=== PATIENT | female | born 1980 | race Caucasian/White ===

== ENCOUNTER 2016-10-27 06:58 | Day surgery (SDC) | payer OTHER ==
[~2016-10-27 06:58] MED LIST: Dexamethasone 4 MG/ML SDV ONE; Lactated Ringers 1,000 ML ONE; Lidocaine 1%/Sod Bicarbonate in NS 8.4% 1 ML Syringe PRN; Midazolam 1 MG/ML 2 ML SDV ONE; Ondansetron 4 MG/2 ML SDV ONE; Propofol 200 MG/20 ML SDV ONE; Rocuronium 50 MG/5 ML Vial ONE; Sodium Chloride 0.9% 10 ML Syringe FLUSH PRN; ceFAZolin 1 GM Vial ONE; fentaNYL 250 MCG/5 ML SDV ONE
[2016-10-27] MEDS ORDERED: Succinylcholine 200 MG/10 ML MDV ONE (07:00)
[2016-10-27] MEDS ORDERED: Ketorolac 30 MG/ML SDV ONE (07:04)
[2016-10-27] MEDS ORDERED: Lidocaine 1% 30 ML SDV ONE (07:11)
[2016-10-27] MEDS ORDERED: Sodium Chloride 0.9% 50 ML SDV ONE (07:11)
[2016-10-27] MEDS: Lactated Ringers 1,000 ML IV SCH ×2 (07:45→10:19)
[2016-10-27] MEDS ORDERED: Scopolamine 1.5 MG Transdermal Patch TRDERM ONE (08:03)
--- NOTE | 2016-10-27 08:06 | PCM.PREANE ---
Preanesthetic Assessment - Anesthesia/Transfusion/Family Hx Anesthesia History: Prior Anesthesia Reaction (PONV) Family History of Anesthesia Reaction: No Transfusion History: No Prior Transfusion(s) - Review of Systems General: No Symptoms Pulmonary: No Symptoms Cardiovascular: No Symptoms Gastrointestinal: No Symptoms Neurological: No Symptoms (Herniated disk in lower back, causes left sided hip pain. Understands she will be in lithotomy position. ) Other: Reports: None - Physical Assessment NPO Status Date: 10/26/16 NPO Status Time: 22:30 O2 Sat by Pulse Oximetry: 96 Respiratory Rate: 16 Vital Signs: Last Vital Signs Temp 36.8 C 10/27/16 07:40 Pulse 73 10/27/16 07:40 Resp 16 10/27/16 07:40 BP 122/81 10/27/16 07:40 Pulse Ox 96 10/27/16 07:40 Height: 1.83 m Weight: 91.626 kg ASA Class: 2 Mental Status: Alert & Oriented x3 Airway Class: Mallampati = 1 Dentition: Reports: Normal Dentition Thyro-Mental Finger Breadths: 3 Mouth Opening Finger Breadths: 3 ROM/Head Extension: Full Lungs: Clear to Auscultation, Normal Respiratory Effort Cardiovascular: Regular Rate, Regular Rhythm - Lab Values: Laboratory Last Values WBC 7.98 K/mm3 (3.98-10.04) 10/25/16 11:42 RBC 4.68 M/mm3 (3.98-5.22) 10/25/16 11:42 Hgb 13.9 gm/L (11.2-15.7) 10/25/16 11:42 Hct 42.1 % (34.1-44.9) 10/25/16 11:42 MCV 90.0 fl (79.4-94.8) 10/25/16 11:42 MCH 29.7 pg (25.6-32.2) 10/25/16 11:42 MCHC 33.0 g/dl (32.2-35.5) 10/25/16 11:42 RDW Std Deviation 39.5 fL (36.4-46.3) 10/25/16 11:42 Plt Count 247 K/mm3 (182-369) 10/25/16 11:42 MPV 10.7 fl (9.4-12.3) 10/25/16 11:42 Neut % (Auto) 61.0 % (34.0-71.1) 10/25/16 11:42 Lymph % (Auto) 30.7 % (19.3-51.7) 10/25/16 11:42 [place] % (Auto) 6.0 % (4.7-12.5) 10/25/16 11:42 Eos % (Auto) 1.5 (0.7-5.8) 10/25/16 11:42 Baso % (Auto) 0.5 % (0.1-1.2) 10/25/16 11:42 Neut # (Auto) 4.87 K/mm3 (1.56-6.13) 10/25/16 11:42 Lymph # (Auto) 2.45 K/mm3 (1.18-3.74) 10/25/16 11:42 [place] # (Auto) 0.48 K/mm3 (0.24-0.36) H 10/25/16 11:42 Eos # (Auto) 0.12 K/mm3 (0.04-0.36) 10/25/16 11:42 Baso # (Auto) 0.04 K/mm3 (0.01-0.08) 10/25/16 11:42 Creatinine 1.0 mg/dL (0.55-1.02) 10/25/16 11:42 Est Cr Clr Drug Dosing 88.02 mL/min 10/25/16 11:42 Estimated GFR (MDRD) > 60 mL/min (>60) 10/25/16 11:42 Urine Color Yellow (Yellow) 10/25/16 11:42 Urine Appearance Clear (Clear) 10/25/16 11:42 Urine pH 6.0 (5.0-8.0) 10/25/16 11:42 Ur Specific [place] 1.015 (1.005-1.030) 10/25/16 11:42 Urine Protein Negative (Negative) 10/25/16 11:42 Urine Glucose (UA) Negative (Negative) 10/25/16 11:42 Urine Ketones Negative (Negative) 10/25/16 11:42 Urine Occult Blood Negative (Negative) 10/25/16 11:42 Urine Nitrite Negative (Negative) 10/25/16 11:42 Urine Bilirubin Negative (Negative) 10/25/16 11:42 Urine Urobilinogen 0.2 (0.2-1.0) 10/25/16 11:42 Ur Leukocyte Esterase Negative (Negative) 10/25/16 11:42 Urine HCG, Qual Negative (NEGATIVE) 10/25/16 11:42 Blood Type A POSITIVE 10/25/16 11:42 Gel Antibody Screen Negative 10/25/16 11:42 - Allergies Allergies/Adverse Reactions: Allergies Allergy/AdvReac Type Severity Reaction Status Date / Time No Known Allergies Allergy Verified 10/26/16 15:58 - Acknowledgements Anesthesia Type Planned: General Anesthesia Pt an Appropriate Candidate for the Planned Anesthesia: Yes Alternatives and Risks of Anesthesia Discussed w Pt/Guardian: Yes Pt/Guardian Understands and Agrees with Anesthesia Plan: Yes PreAnesthesia Questionnaire HEENT History: Reports: Allergic Rhinitis Cardiovascular History: Reports: Other (See Below) Other Cardiovascular History: heart palpitations, post orhtostatic tachycardia syndrome Respiratory History: Reports: None Gastrointestinal History: Reports: Hemorrhoids Genitourinary History: Reports: STD 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: , Other (See Below) Other OB/BYN History: menorrhagia, genital warts Musculoskeletal History: Reports: Other (See Below) Other Musculoskeletal History: heriated disc, L hip pain Neurological History: Reports: Other (See Below) Other Neuro History: lightheadedness Psychiatric History: Reports: None Endocrine/Metabolic History: Reports: None Hematologic History: Reports: None, Other (See Below) Other Hematologic History: leukocytosis Immunologic History: Reports: None Oncologic (Cancer) History: Reports: None Dermatologic History: Reports: None - Past Surgical History Head Surgeries/Procedures: Reports: None HEENT Surgical History: Reports: Myringotomy w Tube(s), Oral Surgery, Other ( See Below) Other HEENT Surgeries/Procedures: PRK surgery Respiratory Surgical History: Reports: None GI Surgical History: Reports: None Female Surgical History: Reports: Tubal Ligation Endocrine Surgical History: Reports: None Dermatological Surgical History: Reports: None - SUBSTANCE USE Smoking Status *Q: Former Smoker Tobacco Use Within Last Twelve Months: Cigarettes Second Hand Smoke Exposure: No Recreational Drug Use History: No - HOME MEDS Home Medications: Home Meds Cetirizine [ZyrTEC] 10 mg PO DAILY 10/26/16 [History] Fluticasone Propionate [Flonase] 1 spray NASBOTH DAILY 10/26/16 [History] Hydrocortisone [Preparation H] 1 applic RECTAL ASDIRECTED PRN 10/26/16 [History] Ketotifen Fumarate [Alaway] 1 drop EYEBOTH BID 10/26/16 [History] Krill Oil 500 mg PO DAILY 10/26/16 [History] Multivitamin with Minerals [Multiple Vitamin] 1 tab PO DAILY 10/26/16 [History] - CURRENT (IN HOUSE) MEDS Current Meds: Current Medications Lactated Ringer's (Ringers, Lactated) 1,000 mls @ 125 mls/hr IV ASDIRECTED TOÑA Stop: 10/27/16 23:00 Last Admin: 10/27/16 07:45 Dose: 125 mls/hr Lidocaine/Sodium Bicarbonate (Buffered Lidocaine 1% In Ns 8.4%) 0.25 ml .XX ONETIME PRN PRN Reason: Prior to IV Start Stop: 10/27/16 18:00 Last Admin: 10/27/16 07:45 Dose: 0.25 ml Sodium Chloride (Saline Flush) 10 ml FLUSH ASDIRECTED PRN PRN Reason: Keep Vein Open Stop: 10/27/16 18:00 Discontinued Medications Cefazolin Sodium (Ancef) Confirm Administered Dose 2 gm .ROUTE .STK-MED ONE Stop: 10/27/16 06:56 Dexamethasone (Dexamethasone) Confirm Administered Dose 4 mg .ROUTE .STK-MED ONE Stop: 10/27/16 06:56 Fentanyl (Sublimaze) Confirm Administered Dose 250 mcg .ROUTE .STK-MED ONE Stop: 10/27/16 06:56 Lactated Ringer's (Ringers, Lactated) Confirm Administered Dose 1,000 mls @ as directed .ROUTE .STK-MED ONE Stop: 10/27/16 06:56 Ketorolac Tromethamine (Toradol) Confirm Administered Dose 30 mg .ROUTE .STK- MED ONE Stop: 10/27/16 07:05 Lidocaine HCl (Xylocaine-Mpf 1%) Confirm Administered Dose 30 ml .ROUTE .STK- MED ONE Stop: 10/27/16 07:12 Midazolam HCl (Versed 1 Mg/Ml) Confirm Administered Dose 2 mg .ROUTE .STK-MED ONE Stop: 10/27/16 06:56 Ondansetron HCl (Zofran) Confirm Administered Dose 4 mg .ROUTE .STK-MED ONE Stop: 10/27/16 06:56 Propofol (Diprivan 20 Ml) Confirm Administered Dose 200 mg .ROUTE .[facility] ONE Stop: 10/27/16 06:56 Propofol (Diprivan 20 Ml) Confirm Administered Dose 200 mg .ROUTE .[facility]-MED ONE Stop: 10/27/16 06:57 Rocuronium [place] (Zemuron) Confirm Administered D[facility] Stop: 10/27/16 06:56 Sodium Chloride (Normal Saline) Confirm Administered Dose 50 ml .ROUTE .[facility]-MED ONE Stop: 10/27/16 07:12 Succinylcholine Chloride (Quelicin) Confirm Administered D[facility] Stop: 10/27/16 07:01
[2016-10-27] MEDS ORDERED: Dexamethasone 4 MG/ML SDV ONE (08:47)
[2016-10-27] MEDS ORDERED: diphenhydrAMINE 50 MG/ML SDV ONE (09:00)
[2016-10-27] MEDS ORDERED: Ondansetron 4 MG/2 ML SDV ONE (09:05)
[2016-10-27] MEDS ORDERED: Glycopyrrolate 0.2 MG/ML SDV ONE (09:06)
[2016-10-27] MEDS ORDERED: Neostigmine Methylsulfate 10 MG/10 ML MDV ONE (09:06)
[2016-10-27] MEDS ORDERED: Atropine 0.4 MG/ML SDV ONE (09:12)
[2016-10-27] MEDS ORDERED: Acetaminophen/oxyCODONE 325-5 MG Tab PO PRN (09:12)
--- NOTE | 2016-10-27 09:22 | PCM.OPNOTE ---
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 The ovaries appeared to be normal, small cyst on the left ovary. Tubes appeared to be status post tubal ligation with scarring. Pre Op Diagnosis: 1. Abnormal uterine bleeding-heavy bleeding and irregular bleeding. 2. Dysmenorrhea Post-Op Diagnosis: Same Anesthesia Technique: General ET Tube, Local Primary Surgeon: Jake Garcia Secondary Surgeon: Manuel Carreno Tile Professional: Hung Dove Tile Professional: Luli Rosales Pathology: Uterus, bilateral fallopian tube segments in one specimen container. Fluid Replacement, Intraop: 1,300 Output, Urine Amount: 100 EBL in mLs: 120 Complications: None Condition: Good Free Text/Narrative:: Surgery duration: 25 minutes Procedure: Procedure: The patient was placed in supine position on the operating table. General endotracheal anesthesia was accomplished. After positioning, and adequate prep and drape, the procedure was then performed. Sterile speculum was placed in the vagina and cervix was visualized. Cervix was injected with [ lidocaine quarter percent with epinephrine]. [20 cc] used. A full circumference incision was made in the cervical epithelium. The bladder was pushed well back off cervix. Posterior cul-de-sac was then entered sharply without problems. Left uterosacral was crossclamped with a LigaSure vessel closure system. The left uterosacral and then the right uterosacral ligament pedicles were developed using the LigaSure system. The anterior cul-de-sac was then entered without problems and the uterine vasculature, cardinal ligament and broad ligament then developed using LigaSure vessel closure system. The uterus was inverted at this time and upper broad ligament fallopian tube pedicles were crossclamped with Bir clamps. Specimen was totally removed. Both these pedicles were then secured with LigaSure vessel closure system Left and right fallopian tube was normal in appearance.. Using LigaSure vessel closure system each of the tubes was then removed and sent with the specimen. The posterior vaginal cuff was run with an 0 Monocryl suture from approximately 2:00 to 10 o'clock position for hemostatic reasons. The patient was found to be hemostatically intact at this time, both ovaries appeared normal and were left in place. A pursestring suture was and placed in the peritoneal cavity externalizing pedicles in case of bleeding. Vaginal cuff was closed with running locked suture of 0 Monocryl. Patient was returned to supine position and awakened from general endotracheal anesthesia. She tolerated the procedure was then left the operating room in satisfactory condition.
[2016-10-27] MEDS ORDERED: HYDROmorphone 0.5 MG/0.5 ML Syringe IVPUSH PRN (09:25)
[2016-10-27] MEDS ORDERED: fentaNYL 100 MCG/2 ML SDV IVPUSH PRN (09:25)
--- NOTE | 2016-10-27 09:27 | PCM.POSTAN ---
POST ANESTHESIA ASSESSMENT - MENTAL STATUS Mental Status: Somnolent - VITAL SIGNS Pulse Rate: 71 SaO2: 97 Resp Rate: 12 Blood Pressure: 110/71 Temperature: 36.3 C - RESPIRATORY Respiratory Status: Respiratory Rate WNL, Airway Patent, O2 Saturation Stable, Supplemental Oxygen - CARDIOVASCULAR CV Status: Pulse Rate WNL, Blood Pressure Stable - GASTROINTESTINAL GI Status: No Symptoms - PAIN Pain Score: 0 - POST OP HYDRATION Hydration Status: Adequate & Stable
[2016-10-27] MEDS ORDERED: Haloperidol Lactate 5 MG/ML SDV IVPUSH ONE (10:15)
[2016-10-27 11:12] VITALS: BP 116/75
[2016-10-27] MEDS ORDERED: Lactated Ringers 1,000 ML ONE (11:48)
--- NOTE | 2016-10-29 01:22 | PCM48HPAN ---
Post Anesthesia Note - EVALUATION WITHIN 48HRS OF ANESTHETIC Vital Signs in Normal Range: Yes Patient Participated in Evaluation: Yes Respiratory Function Stable: Yes Airway Patent: Yes Cardiovascular Function Stable: Yes Hydration Status Stable: Yes Pain Control Satisfactory: Yes Nausea and Vomiting Control Satisfactory: Yes Mental Status Recovered: Yes
== END 2016-10-27 12:25 | disposition home or self-care (01) ==
LOC: JD.SDS 06:58
PROVIDERS: ATTEND Obstetrics & Gynecology
DX: N72 Inflammatory disease of cervix uteri (principal); N83.8 Other noninflammatory disorders of ovary, fallopian tube and broad ligament; N80.0 Endometriosis of uterus; Z87.891 Personal history of nicotine dependence; J30.2 Other seasonal allergic rhinitis; Z79.899 Other long term (current) drug therapy; Z98.890 Other specified postprocedural states; Z98.51 Tubal ligation status
CPT/HCPCS: 36415; 58552; 81003; 81025; 82565; 85025; 86850; 86900; 86901; A9270; J0690; J1100; J1170; J1200; J1630; J1885; J2250; J2405; J2710; J3010; J3490; J7120; 00944; J0330; J0461; J2704

== ENCOUNTER 2020-10-31 09:42 | Emergency (ER) | payer OTHER ==
[2020-10-31 09:59] VITALS: BP 131/88; PULSE 86
[2020-10-31] MEDS ORDERED: Lidocaine 1% 10 ML MDV INJECT ONE (10:02)
--- NOTE | 2020-10-31 10:07 | EDM.PDOC ---
ED HPI GENERAL MEDICAL PROBLEM - General Chief Complaint: Laceration Stated Complaint: LT MIDDLE FINGER LAC Time Seen by Provider: 10/31/20 09:55 Source of Information: Reports: Patient History Limitations: Reports: No Limitations - History of Present Illness INITIAL COMMENTS - FREE TEXT/NARRATIVE: 40-year-old female presents to the ED with a laceration to the volar aspect of h er left third finger distally. States she states this occurred this morning when she was trying to adjust the lid on a coffee pot and the coffee pot broke and she suffered a laceration to the distal aspect of her left third finger. Of note she is right-hand dominant. Tetanus toxoid is up-to-date. Onset: Today, Sudden Onset Date: 10/31/20 Onset Time: 09:00 Duration: Minutes: Location: Reports: Upper Extremity, Left Quality: Reports: Ache (Flap laceration distal aspect of left third finger) Severity: Mild Improves with: Reports: None Worsens with: Reports: None Context: Reports: Trauma (Broken glass call resulted in flap laceration distal left finger). Denies: Activity, Exercise, Lifting, Sick Contact Associated Symptoms: Reports: No Other Symptoms. 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 (see below) (None.) Left Finger-Middle Pain Score (Numeric/FACES): 7 - Related Data Allergies Allergy/AdvReac Type Severity Reaction Status Date / Time No Known Allergies Allergy Verified 10/26/16 15:58 Home Meds: Home Meds Cetirizine [ZyrTEC] 10 mg PO DAILY 10/26/16 [History] Fluticasone Propionate [Flonase] 1 spray NASBOTH DAILY 10/26/16 [History] Hydrocortisone [Preparation H] 1 applic RECTAL ASDIRECTED PRN 10/26/16 [History] Ketotifen Fumarate [Alaway] 1 drop EYEBOTH BID 10/26/16 [History] Krill Oil 500 mg PO DAILY 10/26/16 [History] Multivitamin with Minerals [Multiple Vitamin] 1 tab PO DAILY 10/26/16 [History] Acetaminophen/oxyCODONE [Percocet 325-5 MG] 2 tab PO Q4H PRN #30 tablet 10/27/16 [Rx] Ibuprofen 600 mg PO Q4H PRN #30 tablet 10/27/16 [Rx] Past Medical History HEENT History: Reports: Allergic Rhinitis Cardiovascular History: Reports: Other (See Below) Other Cardiovascular History: heart palpitations, post orhtostatic tachycardia syndrome Respiratory History: Reports: None Gastrointestinal History: Reports: Hemorrhoids Genitourinary History: Reports: STD 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: , Other (See Below) 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 TRAINING SPECIALIST History: menorrhagia, genital warts Musculoskeletal History: Reports: Other (See Below) Other Musculoskeletal History: heriated disc, L hip pain Neurological History: Reports: Other (See Below) Other Neuro History: lightheadedness Psychiatric History: Reports: None Endocrine/Metabolic History: Reports: None Hematologic History: Reports: None, Other (See Below) Other Hematologic History: leukocytosis Immunologic History: Reports: None Oncologic (Cancer) History: Reports: None Dermatologic History: Reports: None - Past Surgical History Head Surgeries/Procedures: Reports: None HEENT Surgical History: Reports: Myringotomy w Tube(s), Oral Surgery, Other (See Below) Other HEENT Surgeries/Procedures: PRK surgery Respiratory Surgical History: Reports: None GI Surgical History: Reports: None Female Surgical History: Reports: Tubal Ligation Endocrine Surgical History: Reports: None Dermatological Surgical History: Reports: None Social & Family History - Family History Cardiac: Reports: High Cholesterol, Hypertension, [place] : Reports: Renal Disease/Insufficiency - Caffeine Use Caffeine Use: Reports: None Other Caffeine Use: Not in the last month and half. Previous to this time coffee one cup daily on average - Living Situation & Occupation Living situation: Reports: , with Spouse, with Family Occupation: Unemployed ED ROS GENERAL - Review of Systems Review Of Systems: See Below Constitutional: Reports: No Symptoms HEENT: Reports: No Symptoms Respiratory: Reports: No Symptoms Cardiovascular: Reports: No Symptoms Endocrine: Reports: No Symptoms GI/Abdominal: Reports: No Symptoms : Reports: No Symptoms Musculoskeletal: Reports: No Symptoms Skin: Reports: No Symptoms Neurological: Reports: No Symptoms Psychiatric: Reports: No Symptoms Hematologic/Lymphatic: Reports: No Symptoms Immunologic: Reports: No Symptoms ED EXAM, SKIN/RASH Exam: See Below Exam Limited By: No Limitations General Appearance: Alert, WD/WN, No Apparent Distress, Other (Temperature is 36.0 with heart rate of 86 and sinus respiratory is 20 with O2 sats 100% room air. BP is 03/28/1987.) Eye Exam: Bilateral Eye: Normal Inspection (No blepharal pallor or scleral icterus) Extremities: Other (Patient has a 1.8 cm flap laceration volar aspect of left third finger. It is actively bleeding and will require suture repair.) Neurological: Alert, Oriented, CN II-XII Intact, Normal Cognition Psychiatric: Normal Affect, Normal Mood Skin: Warm, Dry, Normal Color, No Rash ED SKIN PROCEDURES - Laceration/Wound Repair Left Distal Ventral Digit - 3rd (Middle) Appearance: Subcutaneous, Clean Distal NVT: Neuro & Vascular Intact Anesthetic Type: Local Local Anesthesia - Lidocaine (Xylocaine): 1% Plain Local Anesthetic Volume: 2cc Skin Prep: Saline Closed with: Sutures Lac/Wound length In cm: 1.8 Suture Size: 4-0 # of Sutures: 4 Suture Type: Nylon, Interrupted, Simple Course - Vital Signs Last Recorded V/S: Last Vital Signs Temp 36.0 C L 10/31/20 09:52 Pulse 86 10/31/20 09:52 Resp 20 10/31/20 09:52 BP 131/88 10/31/20 09:52 Pulse Ox 100 10/31/20 09:52 - Orders/Labs/Meds Meds: Medications Discontinued Medications Generic Name Dose Route Start Last Admin Trade Name Nevaeh PRN Reason Stop Dose Admin Lidocaine HCl 10 ml 10/31/20 10:02 Lidocaine 1% 10 Ml Mdv INJECT 10/31/20 10:03 ONETIME ONE - Radiology Interpretation Free Text/Narrative:: 40-year-old female presents to the ED with a deep flap laceration to the volar aspect of her left third finger. Is actively bleeding. It will require suture repair. Wound will be irrigated and then sutured under local anesthetic - Re-Assessments/Exams Free Text/Narrative Re-Assessment/Exam: 10/31/20 10:29 flap laceration distal aspect of the left third finger volar aspect sutured x4 to provide wound opposition and hemostasis. Wound will be cleansed and topical antibiotic placed and a dressing applied. Sutures will need to be removed in 10 days time Departure - Departure Time of Disposition: 10:28 Disposition: Home, Self-Care 01 Condition: Fair Clinical Impression: Laceration of finger Qualifiers: Encounter type: initial encounter Finger: middle finger Damage to nail status: without damage Foreign body presence: without foreign body Laterality: left Qualified Code(s): S61.213A - Laceration without foreign body of left middle finger without damage to nail, initial encounter - Discharge Information *PRESCRIPTION DRUG MONITORING PROGRAM REVIEWED*: Not Applicable *COPY OF PRESCRIPTION DRUG MONITORING REPORT IN PATIENT [place]: Not Applicable Instructions: Laceration Care, Adult, Sutures, [place], or Adhesive Wound Leticia sure, [id number] Referrals: Jessika Lion INSERT OPERATOR [Primary Care Provider] - Forms: ED Department Discharge Additional Instructions: Evaluation in the emergency room this morning in regards to a flap laceration to the distal aspect of your left third finger that resulted from broken glass. The wound was cleansed and then sutured under local anesthetic times 4 sutures. Treatment at home is to daily cleanse the wound with soap and water. Showering is okay but the wound should not be soaked underwater until the sutures are removed. Apply topical antibiotic such as bacitracin or Polysporin to the wound once daily and cover with a bandage to keep clean. Sutures will need to be removed in 10 days time by your primary care provider or walk-in clinic. Return to medical care if you develop any signs of infection such as increased redness, pain, swelling or obvious pus. Sepsis Event Note (ED) - Focused Exam Vital Signs: Vital Signs Temp Pulse Resp BP Pulse Ox 10/31/20 09:52 36.0 C L 86 20 131/88 100
== END 2020-10-31 10:36 | disposition home or self-care (01) ==
LOC: JD.ED 09:42
DX: S61.213A Laceration without foreign body of left middle finger without damage to nail, initial encounter (principal); W25.XXXA Contact with sharp glass, initial encounter
CPT/HCPCS: 12001; 99282; 99282-25

== ENCOUNTER 2024-06-10 07:01 | Day surgery (SDC) | payer BC, OTHER ==
[~2024-06-10 07:01] MED LIST changes: -Dexamethasone 4 MG/ML SDV ONE; -Lactated Ringers 1,000 ML ONE; -Lidocaine 1%/Sod Bicarbonate in NS 8.4% 1 ML Syringe PRN; -Midazolam 1 MG/ML 2 ML SDV ONE; -Ondansetron 4 MG/2 ML SDV ONE; -Propofol 200 MG/20 ML SDV ONE; -Rocuronium 50 MG/5 ML Vial ONE; +Sodium Chloride 0.9% 10 ML Syringe FLUSH SCH; -ceFAZolin 1 GM Vial ONE; -fentaNYL 250 MCG/5 ML SDV ONE
[2024-06-10] MEDS: Lactated Ringers 1,000 ML IV SCH (07:15)
[2024-06-10] MEDS ORDERED: Midazolam 1 MG/ML 2 ML SDV ONE (07:47)
[2024-06-10] MEDS ORDERED: Lidocaine 1% 4 ML ONE (07:47)
[2024-06-10] MEDS ORDERED: Ondansetron 4 MG/2 ML SDV ONE (07:48)
[2024-06-10] MEDS ORDERED: Propofol 200 MG/20 ML SDV ONE (07:48)
[2024-06-10 10:15] VITALS: BP 120/72; PULSE 82
== END 2024-06-10 09:40 | disposition home or self-care (01) ==
LOC: JD.SDS 07:01
PROVIDERS: ATTEND Surgery
DX: Z12.11 Encounter for screening for malignant neoplasm of colon (principal); M62.08 Separation of muscle (nontraumatic), other site
CPT/HCPCS: 45378; J2003; J2250; J2405; J2704; J7120; 00812